=== PATIENT | male | born 2000 | race Caucasian/White ===

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

== ENCOUNTER 2021-10-08 15:29 | Emergency (ER) | payer BC ==
[~2021-10-08] VITALS: Ht 175.3 cm; Wt 63.6 kg
[2021-10-08 16:46] LABS: BASOPHILS % (AUTO) 0.2 % (0.0-2.0); EOSINOPHILS % (AUTO) 0.4 % (1.0-6.0); HEMATOCRIT 46.7 % (41-53); HEMOGLOBIN 15.8 g/dL (13.5-17.5); LYMPHOCYTES # (AUTO) 1.6 K/uL (1.0-4.8); LYMPHOCYTES % (AUTO) 22.2 % (22.0-44.0); MEAN CORPUSCULAR HGB CONC 33.8 G/dL (31.0-37.0); MEAN CORPUSCULAR VOLUME 95 fL (80-100); MONOCYTES # (AUTO) 0.8 K/uL (0.1-1.0); MONOCYTES % (AUTO) 10.5 % (2.0-9.0); NEUTROPHILS # (AUTO) 4.9 K/uL (1.8-7.7); NEUTROPHILS % (AUTO) 66.7 % (40.0-70.0); PLATELET COUNT (AUTO) 144 K/uL (150-450); RED BLOOD CELL COUNT(AUTO) 4.93 MIL/uL (4.50-5.90); RED CELL DISTRIBUTION WIDTH 13.7 % (11.5-14.5)
[2021-10-08 16:55] LABS: ANION GAP 11 mmol/L (8-16); CARBON DIOXIDE 28 mmol/L (22-29); CHLORIDE 102 mmol/L (98-107); CREATININE 0.91 mg/dL (0.60-1.30); GLUCOSE,RANDOM 89 mg/dL (70-110); POTASSIUM 3.7 mmol/L (3.5-5.1); SODIUM SERUM 141 mmol/L (136-145); UREA NITROGEN, BLOOD 11 mg/dL (7-18)
[2021-10-08 16:56] LABS: GLOMERULAR FILTR. RATE CALC > 60 mL/min (>60)
[2021-10-08 17:01] LABS: ALANINE AMINOTRANSFERASE 33 U/L (12-78); ALBUMIN 4.7 g/dL (3.4-5.0); ALKALINE PHOSPHATASE 69 U/L (46-116); ASPARTATE AMINOTRANSFERASE 27 U/L (15-37); BILIRUBIN,TOTAL 0.6 mg/dL (0.1-1.0); LIPASE 52 U/L (73-393); TOTAL PROTEIN, SERUM 7.6 g/dL (6.4-8.2)
[2021-10-08 18:15] VITALS: BP 132/79
[2021-10-08 18:16] LABS: APPEARANCE,URINE CLEAR (CLEAR); BILIRUBIN,URINE NEGATIVE (NEGATIVE); GLUCOSE, URINE (UA) NEGATIVE (NEGATIVE); KETONES,URINE NEGATIVE (NEGATIVE); LEUKOCYTE ESTERASE ,URINE NEGATIVE (NEGATIVE); NITRATE,URINE NEGATIVE (NEGATIVE); OCCULT BLOOD,URINE NEGATIVE (NEGATIVE); PH,URINE 6.5 (5.0-8.0); PROTEIN,URINE NEGATIVE (NEGATIVE); SPECIFIC GRAVITIY, URINE 1.003 (1.003-1.030); UROBILINOGEN,URINE <=1.0 mg/dL (<=1.0)
== END 2021-10-08 18:46 | disposition home or self-care (01) ==
LOC: EMS 15:33
DX: R10.31 Right lower quadrant pain (principal); F12.90 Cannabis use, unspecified, uncomplicated
CPT/HCPCS: 74176; 80053; 81002; 81003; 83690; 85025; 99284

== ENCOUNTER 2021-12-28 19:16 | Emergency (ER) | payer BC ==
[~2021-12-28] VITALS: Ht 177.8 cm; Wt 63.6 kg
[2021-12-28] MEDS ORDERED: AMOX500T2 PO ×2 (19:53→20:18)
[2021-12-28] MEDS ORDERED: ACET-2080 PO ×3 (19:53→20:19)
[2021-12-28] MEDS ORDERED: IBUP-1554 PO ×2 (19:53→20:18)
[2021-12-28 20:04] VITALS: BP 123/80
== END 2021-12-28 20:41 | disposition home or self-care (01) ==
LOC: EMS 19:17
DX: K08.89 Other specified disorders of teeth and supporting structures (principal); F12.90 Cannabis use, unspecified, uncomplicated
CPT/HCPCS: 99283; Z7502